=== PATIENT | male | born 1970 | race Caucasian/White ===

== ENCOUNTER 2018-09-28 10:04 | Emergency (ER) | payer OTHER ==
[2018-09-28 10:13] VITALS: BP 158/93; PULSE 71; TEMP 97.9; BMI 24.7
--- NOTE | 2018-09-28 11:17 | PDOC ---
History of Present Illness - General Chief Complaint: Wound Stated Complaint: WOUND Time Seen by Provider: 09/28/18 10:57 - History of Present Illness Initial Comments: 09/28/18 11:10 48-year-old male without comorbidities presents for evaluation of left middle finger irritation 3 weeks. No systemic symptoms. Past History - Past Medical History Allergies/Adverse Reactions: Allergies Allergy/AdvReac Type Severity Reaction Status Date / Time No Known Allergies Allergy Verified 08/18/14 14:27 Home Medications: Ambulatory Orders Famotidine [Pepcid -] 40 mg PO DAILY #7 tablet NS 08/18/14 Hydrocortisone [Preparation H] 26 gm TP DAILY #30 cream..g. 08/18/14 Cephalexin [Keflex] 500 mg PO QID #40 capsule 09/28/18 COPD: No Disorders: No Liver Disease: No - Surgical History Cardiac Surgery: No Lung Surgery: No - Immunization History Immunization Up to Date: No - Suicide/Smoking/Psychosocial Hx Smoking Status: No Smoking History: Never smoked Have you smoked in the past 12 months: No Number of Cigarettes Smoked Daily: 0 Information on smoking cessation initiated: No Hx Alcohol Use: No Drug/Substance Use Hx: No Substance Use Type: Alcohol Review of Systems - Review of Systems Constitutional: No: Fever Integumentary: Yes: See HPI *Physical Exam - Vital Signs Last Vital Signs Temp Pulse Resp BP Pulse Ox 97.9 F 71 18 158/93 99 09/28/18 10:10 09/28/18 10:10 09/28/18 10:10 09/28/18 10:10 09/28/18 10:10 - Physical Exam Comments: 09/28/18 11:17 Left middle finger skin color and temperature are normal. There is a small eschar on the ulnar aspect of the nail fold without surrounding erythema fluctuance or tenderness. There is mild sensitivity at the tip. FDS and FDP work independently. There is no pain with passive stretch no indication of tenosynovitis. No edema. Neurovascular intact without gross sensorimotor deficits. Moderate Sedation - Procedure Monitoring Vital Signs: Procedure Monitoring Vital Signs Temperature 97.9 F 09/28/18 10:10 Pulse Rate 71 09/28/18 10:10 Respiratory Rate 18 09/28/18 10:10 Blood Pressure 158/93 09/28/18 10:10 O2 Sat by Pulse Oximetry (%) 99 09/28/18 10:10 Medical Decision Making - Medical Decision Making 09/28/18 11:18 This is an unkept 48-year-old male. I will treat him prophylactically with Keflex And follow-up with hand surgery. No incision and drainage needs to be done today. *DC/Admit/Observation/Transfer Diagnosis at time of Disposition: Paronychia of finger of left hand - Discharge Dispostion Disposition: HOME Condition at time of disposition: Stable Decision to Admit order: No - Prescriptions Prescriptions: Cephalexin [Keflex] 500 mg PO QID #40 capsule - Referrals Referrals: Joel Guadarrama MD [Staff Physician] - - Patient Instructions Printed Discharge Instructions: [facility], DI for Paronychia Additional Instructions: [facility] follow-up with hand surgery in 1-2 days for further evaluation and treatment options. Return to the emergency room should symptoms worsen or go unresolved. Please take the antibiotics as directed warm soapy tap water soaks with your finger 2-3 times a day for 5 minutes at a time. - Post Discharge Activity
== END 2018-09-28 11:31 | disposition home or self-care (01) ==
LOC: JERFT 10:04
DX: L03.012 Cellulitis of left finger (principal)
CPT/HCPCS: 99281-25

== ENCOUNTER 2022-08-24 19:38 | Observation (INO) | payer OTHER ==
[2022-08-24 19:45] VITALS: BMI 28.2
[2022-08-24] MEDS ORDERED: diazePAM 5 MG TABLET PO ONE (21:24)
[2022-08-24] MEDS ORDERED: SODIUM CHLORIDE 1,000 ML IV STA (21:25)
[2022-08-24] MEDS ORDERED: FOLIC ACID 1 MG TABLET (FP) PO ONE (22:01)
[2022-08-24] MEDS ORDERED: THIAMINE HCL 200 MG/2 ML VIAL IVPB ONE (22:01)
[2022-08-24] MEDS ORDERED: THIAMINE HCL 200 MG/2 ML VIAL ONE (22:26)
[2022-08-24] MEDS ORDERED: FOLIC ACID 1 MG TABLET (FP) ONE (22:28)
[2022-08-24] MEDS ORDERED: diazePAM 5 MG TABLET ONE (22:28)
[2022-08-24] MEDS ORDERED: diazePAM CARPU-JECT 10 MG/2 ML DISP.SYRIN IVPUSH ONE (23:03)
[2022-08-24 23:07] LABS: BASO % 0.9 % (0-2.0); EOS % 2.8 % (0-4.5); HEMATOCRIT 42.9 % (35.4-49); MCH 27.7 pg (25.7-33.7); MCHC 32.7 g/dl (32.0-35.9); MEAN CELL VOLUME 84.7 fl (80-96); MEAN PLT VOLUME 8.8 fl (7.5-11.1); NEUT % 70.3 % (42.8-82.8); PLATELET COUNT 189 10^3/uL (134-434); RBC 5.06 M/mm3 (4.00-5.60); RDW 17.9 % (11.9-15.9); VENOUS BASE EXCESS -1.6 mmol/L (-2-2); VENOUS O2 SATURATION 85.2 % (70-80); VENOUS PCO2 44.7 mmHg (38-52); VENOUS PH 7.351 (7.310-7.410); WHITE BLOOD COUNT 5.7 K/mm3 (4.0-10.0)
[2022-08-24 23:25] LABS: INR 1.08 (0.83-1.09); PROTHROMBIN TIME (PATIENT) 12.4 SEC (9.7-13.0)
[2022-08-24 23:28] LABS: ACTIVATED PTT 29.6 SECONDS (25.2-36.5)
[2022-08-24 23:36] LABS: ALBUMIN 3.8 g/dl (3.4-5.0); BLOOD UREA NITROGEN 4.8 mg/dL (7-18); CALCIUM 8.8 mg/dL (8.5-10.1)
[2022-08-24 23:39] LABS: CREATININE 0.7 mg/dL (0.55-1.3)
[2022-08-24 23:41] LABS: BILIRUBIN,TOTAL 0.4 mg/dL (0.2-1); TOT PROT 8.2 g/dl (6.4-8.2)
[2022-08-24 23:42] LABS: LACTIC ACID 3.3 mmol/L (0.4-2.0)
[2022-08-25] MEDS ORDERED: diazePAM CARPU-JECT 10 MG/2 ML DISP.SYRIN ONE (00:06)
[2022-08-25] MEDS ORDERED: diazePAM 5 MG TABLET PO PRN (03:03)
[2022-08-25] MEDS: diazePAM 5 MG TABLET PO SCH ×2 (06:07→14:15)
[2022-08-25] MEDS ORDERED: diazePAM 5 MG TABLET ONE ×2 (06:10→14:00)
[2022-08-25 07:48] LABS: LACTIC ACID 2.3 mmol/L (0.4-2.0)
[2022-08-25 08:55] LABS: BASO % 0.8 % (0-2.0); EOS % 4.1 % (0-4.5); HEMATOCRIT 39.6 % (35.4-49); LYMPH % 20.2 % (8-40); MCH 27.7 pg (25.7-33.7); MCHC 32.9 g/dl (32.0-35.9); MEAN CELL VOLUME 84.4 fl (80-96); MEAN PLT VOLUME 8.7 fl (7.5-11.1); NEUT % 68.9 % (42.8-82.8); PLATELET COUNT 168 10^3/uL (134-434); RDW 17.8 % (11.9-15.9); WHITE BLOOD COUNT 5.9 K/mm3 (4.0-10.0)
[2022-08-25 09:19] LABS: ALBUMIN 3.3 g/dl (3.4-5.0)
[2022-08-25 09:20] LABS: CALCIUM 8.4 mg/dL (8.5-10.1)
[2022-08-25 09:22] LABS: PHOSPHOROUS 3.2 mg/dL (2.5-4.9)
[2022-08-25 09:23] LABS: CREATININE 0.7 mg/dL (0.55-1.3)
[2022-08-25 09:24] LABS: BILIRUBIN,TOTAL 0.7 mg/dL (0.2-1); TOT PROT 7.3 g/dl (6.4-8.2)
[2022-08-25] MEDS ORDERED: PANTOPRAZOLE 20 MG TABLET PO SCH (10:00)
[2022-08-25] MEDS ORDERED: ENOXAPARIN NA (PORCINE) 40 MG/0.4 ML DISP.SYRIN SQ SCH (10:00)
[2022-08-25] MEDS ORDERED: THIAMINE HCL 200 MG/2 ML VIAL ONE (13:59)
[2022-08-25] MEDS ORDERED: ENOXAPARIN NA (PORCINE) 40 MG/0.4 ML DISP.SYRIN SQ ONE (14:00)
[2022-08-25] MEDS ORDERED: PANTOPRAZOLE 20 MG TABLET PO ONE (14:00)
[2022-08-25] MEDS: THIAMINE HCL 200 MG/2 ML VIAL IVPB SCH ×2 (14:15→14:16)
[2022-08-25 14:17] VITALS: RESP 18
[2022-08-25 15:55] VITALS: BP 147/85; PULSE 81; TEMP 97.8
[2022-08-26] MEDS ORDERED: diazePAM 5 MG TABLET PO SCH (06:00)
[2022-08-27] MEDS ORDERED: diazePAM 5 MG TABLET PO SCH (06:00)
[2022-08-27] MEDS ORDERED: THIAMINE HCL 200 MG/2 ML VIAL IVPB SCH (10:00)
[2022-08-28] MEDS ORDERED: diazePAM 5 MG TABLET PO ONE (06:00)
== END 2022-08-25 16:42 | disposition home or self-care (01) ==
LOC: JER 19:38 → JERBED 08-25 01:30 → UNDOADMOB 08-25 01:30 → INTOOBSV 08-25 01:30 → JERBED 08-25 02:22
PROVIDERS: ADMIT Internal Medicine; ATTEND Internal Medicine
PROC: 3E033NZ Introduction of Analgesics, Hypnotics, Sedatives into Peripheral Vein, Percutaneous Approach (ICD-10-PCS; principal; 2022-08-25)
PROC: 3E0337Z Introduction of Electrolytic and Water Balance Substance into Peripheral Vein, Percutaneous Approach (ICD-10-PCS; 2022-08-25)
PROC: 3E033GC Introduction of Other Therapeutic Substance into Peripheral Vein, Percutaneous Approach (ICD-10-PCS; 2022-08-25)
DX: F10.939 Alcohol use, unspecified with withdrawal, unspecified (principal); R10.11 Right upper quadrant pain; I45.81 Long QT syndrome; Z29.8 Encounter for other specified prophylactic measures; I10 Essential (primary) hypertension
CPT/HCPCS: 36415; 71046-TC-FY; 76705-TC; 80053; 82803; 83605; 83690; 83735; 84100; 84484; 85025; 85610; 85730; 93005; 93010; 96361; 96374; 96375; 99285-25; C9803-CS; G0378; U0003; U0005

== ENCOUNTER 2023-01-18 22:01 | Emergency (ER) | payer OTHER ==
[2023-01-18 22:09] VITALS: BP 165/102; PULSE 86; RESP 20; TEMP 98.1; BMI 25.8
== END 2023-01-19 01:31 | disposition home or self-care (01) ==
LOC: JER 22:01
DX: F10.920 Alcohol use, unspecified with intoxication, uncomplicated (principal); Y90.9 Presence of alcohol in blood, level not specified
CPT/HCPCS: 99282-25

== ENCOUNTER 2023-01-19 02:07 | Inpatient (IN) | payer OTHER ==
[2023-01-19 02:28] VITALS: BMI 25.0
[2023-01-19] MEDS ORDERED: cloNIDine HCL 0.1 MG TABLET PO ONE (02:51)
[2023-01-19] MEDS ORDERED: BENZOCAINE/MENTHOL (CHLORASEPTIC ) LOZENGE MM PRN (02:52)
[2023-01-19] MEDS ORDERED: IBUPROFEN 400 MG TABLET (FP) PO PRN (02:52)
[2023-01-19] MEDS ORDERED: MAG HYDROX/AL HYDROX/SIMETH 30 ML UNIT-DOSE CUP PO PRN (02:52)
[2023-01-19] MEDS ORDERED: NALOXONE HCL (KLOXXADO) 8 MG SPRAY NS PRN (02:52)
[2023-01-19] MEDS ORDERED: guaiFENesin 600 MG TABLET.ER (FP) PO PRN (02:52)
[2023-01-19] MEDS ORDERED: BISMUTH SUBSALICYLATE 524 MG/30 ML PO PRN (02:52)
[2023-01-19] MEDS ORDERED: NALOXONE HCL 0.4 MG/ML VIAL IM PRN (02:52)
[2023-01-19] MEDS ORDERED: IBUPROFEN 600 MG TABLET (FP) PO PRN (02:52)
[2023-01-19] MEDS ORDERED: DICYCLOMINE HCL 10 MG CAPSULE PO PRN (02:52)
[2023-01-19] MEDS ORDERED: POLYETHYLENE GLYCOL (HEALTHYLAX) 3350 17 GM PACKET PO PRN (02:52)
[2023-01-19] MEDS ORDERED: ONDANSETRON *ODT* 4 MG TABLET SL PRN (02:52)
[2023-01-19] MEDS ORDERED: ACETAMINOPHEN 325 MG TABLET (FP) PO PRN (02:52)
[2023-01-19] MEDS ORDERED: LOPERAMIDE HCL 2 MG CAPSULE PO PRN (02:52)
[2023-01-19] MEDS ORDERED: BENZONATATE 200 MG CAPSULE PO PRN (02:52)
[2023-01-19] MEDS ORDERED: MAGNESIUM HYDROX 2400MG/30ML ORAL SUSPENSION 30 ML CUP PO PRN (02:52)
[2023-01-19 09:57] LABS: HEMATOCRIT 40.9 % (35.4-49); HEMOGLOBIN 14.2 GM/dL (11.7-16.9); MCH 28.7 pg (25.7-33.7); MCHC 34.8 g/dl (32.0-35.9); MEAN CELL VOLUME 82.6 fl (80-96); MEAN PLT VOLUME 8.6 fl (7.5-11.1); PLATELET COUNT 248 10^3/uL (134-434); RBC 4.96 M/mm3 (4.00-5.60); RDW 14.5 % (11.9-15.9); WHITE BLOOD COUNT 5.9 K/mm3 (4.0-10.0)
[2023-01-19 10:00] LABS: ALBUMIN 3.6 g/dl (3.4-5.0); CALCIUM 8.2 mg/dL (8.5-10.1)
[2023-01-19 10:02] LABS: BLOOD UREA NITROGEN 5.4 mg/dL (7-18)
[2023-01-19 10:04] LABS: CREATININE 0.7 mg/dL (0.55-1.3)
[2023-01-19 10:07] LABS: BILIRUBIN,TOTAL 0.6 mg/dL (0.2-1); TOT PROT 7.7 g/dl (6.4-8.2)
[2023-01-19] MEDS: METHOCARBAMOL 500 MG TABLET PO PRN (10:17)
[2023-01-19] MEDS: hydrOXYzine PAMOATE 25 MG CAPSULE (FP) PO PRN (10:17)
[2023-01-19] MEDS: PRENATAL VITAMINS W/ FOLIC ACID TABLET (FP) PO SCH (10:17)
[2023-01-19] MEDS: amLODIPine BESYLATE 10 MG TABLET (FP) PO SCH (12:40)
[2023-01-19 15:03] VITALS: RESP 18
[2023-01-19] MEDS ORDERED: chlordiazePOXIDE HCL 25 MG CAPSULE PO PRN (15:15)
[2023-01-19] MEDS: chlordiazePOXIDE HCL 25 MG CAPSULE PO SCH ×2 (17:40→22:31)
[2023-01-19] MEDS ORDERED: THIAMINE HCL 100 MG TABLET (FP) PO SCH (22:00)
[2023-01-19] MEDS ORDERED: MELATONIN 5 MG TABLETS PO SCH (22:00)
[2023-01-20] MEDS: chlordiazePOXIDE HCL 25 MG CAPSULE PO SCH ×2 (05:24→10:20)
[2023-01-20] MEDS: hydrOXYzine PAMOATE 25 MG CAPSULE (FP) PO PRN (10:18)
[2023-01-20] MEDS: amLODIPine BESYLATE 10 MG TABLET (FP) PO SCH (10:18)
[2023-01-20] MEDS: METHOCARBAMOL 500 MG TABLET PO PRN (10:18)
[2023-01-20] MEDS: PRENATAL VITAMINS W/ FOLIC ACID TABLET (FP) PO SCH (10:18)
[2023-01-20 13:08] VITALS: BP 113/69; PULSE 91; TEMP 97.8
[2023-01-21] MEDS ORDERED: chlordiazePOXIDE HCL 25 MG CAPSULE PO SCH (05:00)
[2023-01-22] MEDS ORDERED: chlordiazePOXIDE HCL 10 MG CAPSULE PO PRN
[2023-01-22] MEDS ORDERED: chlordiazePOXIDE HCL 10 MG CAPSULE PO SCH (05:00)
[2023-01-23] MEDS ORDERED: chlordiazePOXIDE HCL 10 MG CAPSULE PO SCH (05:00)
[2023-01-24] MEDS ORDERED: chlordiazePOXIDE HCL 10 MG CAPSULE PO ONE (05:00)
== END 2023-01-20 15:51 | disposition left against medical advice (07) | DRG 770 ==
LOC: YASAS 02:07 → Y6N 03:14
PROVIDERS: ADMIT Allergy & Immunology; ATTEND Allergy & Immunology
PROC: HZ2ZZZZ Detoxification Services for Substance Abuse Treatment (ICD-10-PCS; principal; 2023-01-19)
DX: F10.230 Alcohol dependence with withdrawal, uncomplicated (principal)
CPT/HCPCS: 36415; 80053; 85027; 86780; 93005; 93010; C9803-CS; U0003; U0005

== ENCOUNTER 2023-08-19 00:34 | Inpatient (IN) | payer OTHER ==
[2023-08-19] MEDS ORDERED: SODIUM CHLORIDE 0.9% 500 ML INFUS.BAG IV ONE (01:07)
[2023-08-19] MEDS ORDERED: MAG HYDROX/AL HYDROX/SIMETH 30 ML UNIT-DOSE CUP PO ONE (01:07)
[2023-08-19] MEDS ORDERED: ONDANSETRON 4 MG/2 ML VIAL IVPUSH ONE (01:07)
[2023-08-19] MEDS ORDERED: FAMOTIDINE 20 MG/50 ML IVPB 20 MG/50 ML MG IVPB ONE ×2 (01:07→01:15)
[2023-08-19] MEDS ORDERED: ONDANSETRON 4 MG/2 ML VIAL ONE (01:15)
[2023-08-19] MEDS ORDERED: MAG HYDROX/AL HYDROX/SIMETH 30 ML UNIT-DOSE CUP ONE (01:15)
[2023-08-19 01:40] LABS: EOS % 0.2 % (0-4.5); HEMATOCRIT 44.6 % (35.4-49); HEMOGLOBIN 15.2 GM/dL (11.7-16.9); MCH 29.4 pg (25.7-33.7); MCHC 34.2 g/dl (32.0-35.9); MEAN PLT VOLUME 9.2 fl (7.5-11.1); MONO % 7.4 % (3.8-10.2); NEUT % 64.4 % (42.8-82.8); PLATELET COUNT 231 10^3/uL (134-434); RBC 5.19 M/mm3 (4.00-5.60); RDW 15.1 % (11.9-15.9); WHITE BLOOD COUNT 6.6 K/mm3 (4.0-10.0)
[2023-08-19 01:54] LABS: INR 1.24 (0.83-1.09); PROTHROMBIN TIME (PATIENT) 14.4 SEC (9.7-13.0)
[2023-08-19 01:57] LABS: ACTIVATED PTT 32.9 SECONDS (25.2-36.5)
[2023-08-19 02:02] LABS: POTASSIUM 3.5 mmol/L (3.5-5.1)
[2023-08-19 02:04] LABS: BLOOD UREA NITROGEN 8.6 mg/dL (7-18); CALCIUM 8.6 mg/dL (8.5-10.1)
[2023-08-19 02:05] LABS: ALBUMIN 3.5 g/dl (3.4-5.0)
[2023-08-19 02:08] LABS: CREATININE 1.6 mg/dL (0.55-1.3)
[2023-08-19 02:09] LABS: BILIRUBIN,TOTAL 2.1 mg/dL (0.2-1); TOT PROT 8.2 g/dl (6.4-8.2)
[2023-08-19 03:24] LABS: ARTERIAL BLD GAS O2 SATURATION 95.1 % (95-98); ARTERIAL BLOOD GAS BASE EXCESS -0.7 mmol/L (-2-2); ARTERIAL BLOOD GAS PO2 71.8 mmHg (80-100); ARTERIAL BLOOD GAS pH 7.441 (7.350-7.450)
[2023-08-19 04:22] LABS: CHLORIDE 102 mmol/L (98-107); POTASSIUM 3.5 mmol/L (3.5-5.1); SODIUM 136 mmol/L (136-145)
[2023-08-19 04:23] LABS: CALCIUM 7.5 mg/dL (8.5-10.1)
[2023-08-19 04:24] LABS: ALBUMIN 3.1 g/dl (3.4-5.0); ANION GAP 10 mmol/L (4-13); CO2 24 mmol/L (21-32); GLUCOSE,RANDOM 116 mg/dL (74-106)
[2023-08-19 04:27] LABS: CREATININE 1.5 mg/dL (0.55-1.3); SGOT/AST 245 U/L (15-37); SGPT/ALT 477 U/L (13-61)
[2023-08-19 04:29] LABS: BILIRUBIN,TOTAL 1.8 mg/dL (0.2-1); TOT PROT 7.3 g/dl (6.4-8.2)
[2023-08-19 04:30] LABS: ALK PHOS 109 U/L (45-117)
[2023-08-19] MEDS ORDERED: FOLIC ACID INJECTION - 1 MG, THIAMINE HCL 100 MG, MULTIVIT INJECTION ADULT 10 ML in SOD... IVPB ONE (04:58)
[2023-08-19 06:42] LABS: POTASSIUM 3.6 mmol/L (3.5-5.1)
[2023-08-19 06:44] LABS: ALBUMIN 2.9 g/dl (3.4-5.0); BLOOD UREA NITROGEN 6.6 mg/dL (7-18); CALCIUM 7.6 mg/dL (8.5-10.1)
[2023-08-19 06:48] LABS: CREATININE 1.5 mg/dL (0.55-1.3)
[2023-08-19 06:49] LABS: BILIRUBIN,TOTAL 1.7 mg/dL (0.2-1); TOT PROT 6.8 g/dl (6.4-8.2)
[2023-08-19] MEDS ORDERED: LORazepam 1 MG TABLET PO PRN (08:54)
[2023-08-19] MEDS ORDERED: MAG HYDROX/AL HYDROX/SIMETH 30 ML UNIT-DOSE CUP PO PRN (09:33)
[2023-08-19] MEDS ORDERED: TRIMETHOBENZAMIDE HCL 200MG/2ML INJ IM PRN (09:34)
[2023-08-19] MEDS ORDERED: THIAMINE HCL 100 MG TABLET (FP) ONE (10:24)
[2023-08-19] MEDS ORDERED: ENOXAPARIN NA (PORCINE) 40 MG/0.4 ML DISP.SYRIN SQ ONE (10:24)
[2023-08-19] MEDS ORDERED: FOLIC ACID 1 MG TABLET (FP) ONE (10:24)
[2023-08-19] MEDS: FOLIC ACID 1 MG TABLET (FP) PO SCH (10:33)
[2023-08-19] MEDS: THIAMINE HCL 100 MG TABLET (FP) PO SCH (10:33)
[2023-08-19] MEDS: ENOXAPARIN NA (PORCINE) 40 MG/0.4 ML DISP.SYRIN SQ SCH (10:33)
[2023-08-19] MEDS: SODIUM CHLORIDE 1,000 ML IV SCH (10:33)
[2023-08-19] MEDS ORDERED: LORazepam 1 MG TABLET ONE (10:37)
[2023-08-19] MEDS ORDERED: LORazepam 2 MG TABLET PO SCH (11:00)
[2023-08-19] MEDS: LORazepam 1 MG TABLET PO SCH ×2 (17:00→22:46)
[2023-08-20] MEDS: LORazepam 1 MG TABLET PO SCH ×4 (06:20→22:06)
[2023-08-20] MEDS: SODIUM CHLORIDE 1,000 ML IV SCH (06:21)
[2023-08-20 07:47] LABS: BASO % 1.2 % (0-2.0); EOS % 3.3 % (0-4.5); HEMATOCRIT 39.9 % (35.4-49); LYMPH % 29.1 % (8-40); MCH 29.2 pg (25.7-33.7); MCHC 32.6 g/dl (32.0-35.9); MEAN CELL VOLUME 89.5 fl (80-96); MEAN PLT VOLUME 9.9 fl (7.5-11.1); MONO % 7.6 % (3.8-10.2); NEUT % 58.8 % (42.8-82.8); PLATELET COUNT 155 10^3/uL (134-434); RBC 4.45 M/mm3 (4.00-5.60); RDW 14.8 % (11.9-15.9); WHITE BLOOD COUNT 4.3 K/mm3 (4.0-10.0)
[2023-08-20 07:58] LABS: BLOOD UREA NITROGEN 4.3 mg/dL (7-18); CALCIUM 7.7 mg/dL (8.5-10.1); MAGNESIUM 1.8 mg/dL (1.8-2.4)
[2023-08-20 07:59] LABS: ALBUMIN 2.8 g/dl (3.4-5.0)
[2023-08-20 08:01] LABS: PHOSPHOROUS 2.6 mg/dL (2.5-4.9)
[2023-08-20 08:02] LABS: CREATININE 1.3 mg/dL (0.55-1.3)
[2023-08-20 08:03] LABS: BILIRUBIN,TOTAL 1.8 mg/dL (0.2-1); TOT PROT 6.6 g/dl (6.4-8.2)
[2023-08-20 09:09] LABS: POTASSIUM 3.6 mmol/L (3.5-5.1)
[2023-08-20] MEDS: FAMOTIDINE 20 MG TABLET PO SCH (09:22)
[2023-08-20] MEDS: THIAMINE HCL 100 MG TABLET (FP) PO SCH (09:22)
[2023-08-20] MEDS: FOLIC ACID 1 MG TABLET (FP) PO SCH (09:22)
[2023-08-20] MEDS: ENOXAPARIN NA (PORCINE) 40 MG/0.4 ML DISP.SYRIN SQ SCH (09:23)
[2023-08-21] MEDS: LORazepam 1 MG TABLET PO SCH ×4 (05:53→22:03)
[2023-08-21 07:38] LABS: HEMATOCRIT 42.1 % (35.4-49); HEMOGLOBIN 13.9 GM/dL (11.7-16.9); MCH 29.2 pg (25.7-33.7); MCHC 32.9 g/dl (32.0-35.9); MEAN CELL VOLUME 88.8 fl (80-96); MEAN PLT VOLUME 9.6 fl (7.5-11.1); PLATELET COUNT 167 10^3/uL (134-434); RBC 4.74 M/mm3 (4.00-5.60); RDW 14.5 % (11.9-15.9); WHITE BLOOD COUNT 5.3 K/mm3 (4.0-10.0)
[2023-08-21 08:33] LABS: POTASSIUM 3.7 mmol/L (3.5-5.1)
[2023-08-21 08:35] LABS: ALBUMIN 3.1 g/dl (3.4-5.0); CALCIUM 8.7 mg/dL (8.5-10.1)
[2023-08-21 08:38] LABS: CREATININE 0.9 mg/dL (0.55-1.3)
[2023-08-21 08:40] LABS: BILIRUBIN,TOTAL 1.4 mg/dL (0.2-1); TOT PROT 7.3 g/dl (6.4-8.2)
[2023-08-21] MEDS: FAMOTIDINE 20 MG TABLET PO SCH (09:49)
[2023-08-21] MEDS: FOLIC ACID 1 MG TABLET (FP) PO SCH (09:49)
[2023-08-21] MEDS: ENOXAPARIN NA (PORCINE) 40 MG/0.4 ML DISP.SYRIN SQ SCH (09:49)
[2023-08-21] MEDS: THIAMINE HCL 100 MG TABLET (FP) PO SCH (09:49)
[2023-08-22] MEDS ORDERED: LORazepam 0.5 MG TABLET PO PRN
[2023-08-22] MEDS: LORazepam 0.5 MG TABLET PO SCH ×4 (05:59→22:03)
[2023-08-22 07:09] LABS: HEMATOCRIT 43.3 % (35.4-49); HEMOGLOBIN 14.4 GM/dL (11.7-16.9); MCH 29.8 pg (25.7-33.7); MCHC 33.3 g/dl (32.0-35.9); MEAN CELL VOLUME 89.4 fl (80-96); MEAN PLT VOLUME 10.5 fl (7.5-11.1); PLATELET COUNT 160 10^3/uL (134-434); RBC 4.84 M/mm3 (4.00-5.60); RDW 14.5 % (11.9-15.9); WHITE BLOOD COUNT 5.4 K/mm3 (4.0-10.0)
[2023-08-22 09:13] LABS: POTASSIUM 4.1 mmol/L (3.5-5.1)
[2023-08-22 09:15] LABS: BLOOD UREA NITROGEN 13.4 mg/dL (7-18)
[2023-08-22 09:16] LABS: ALBUMIN 3.1 g/dl (3.4-5.0)
[2023-08-22 09:19] LABS: CREATININE 0.8 mg/dL (0.55-1.3)
[2023-08-22 09:20] LABS: BILIRUBIN,TOTAL 0.9 mg/dL (0.2-1); TOT PROT 7.5 g/dl (6.4-8.2)
[2023-08-22] MEDS: FAMOTIDINE 20 MG TABLET PO SCH (10:10)
[2023-08-22] MEDS: FOLIC ACID 1 MG TABLET (FP) PO SCH (10:10)
[2023-08-22] MEDS: THIAMINE HCL 100 MG TABLET (FP) PO SCH (10:10)
[2023-08-22] MEDS: ENOXAPARIN NA (PORCINE) 40 MG/0.4 ML DISP.SYRIN SQ SCH (10:10)
[2023-08-22 16:15] VITALS: BMI 23.1
[2023-08-23 01:59] VITALS: TEMP 98.8
[2023-08-23] MEDS ORDERED: LORazepam 0.5 MG TABLET PO ONE (05:00)
[2023-08-23 07:03] VITALS: BP 132/80; PULSE 69; RESP 20
[2023-08-23] MEDS: ENOXAPARIN NA (PORCINE) 40 MG/0.4 ML DISP.SYRIN SQ SCH (10:19)
[2023-08-23] MEDS: FOLIC ACID 1 MG TABLET (FP) PO SCH (10:19)
[2023-08-23] MEDS: FAMOTIDINE 20 MG TABLET PO SCH (10:19)
[2023-08-23] MEDS: THIAMINE HCL 100 MG TABLET (FP) PO SCH (10:20)
[2023-08-23 13:18] LABS: POTASSIUM 3.9 mmol/L (3.5-5.1)
[2023-08-23 13:20] LABS: ALBUMIN 3.4 g/dl (3.4-5.0); BLOOD UREA NITROGEN 12.5 mg/dL (7-18)
[2023-08-23 13:23] LABS: CREATININE 0.7 mg/dL (0.55-1.3)
[2023-08-23 13:25] LABS: TOT PROT 7.8 g/dl (6.4-8.2)
== END 2023-08-23 14:00 | disposition home or self-care (01) | DRG 775 ==
LOC: JER 00:34 → JERBED 05:00 → J4W 15:10
PROVIDERS: ADMIT Internal Medicine; ATTEND Internal Medicine
PROC: HZ2ZZZZ Detoxification Services for Substance Abuse Treatment (ICD-10-PCS; principal; 2023-08-19)
DX: F10.239 Alcohol dependence with withdrawal, unspecified (principal); K70.10 Alcoholic hepatitis without ascites; K44.0 Diaphragmatic hernia with obstruction, without gangrene; K80.20 Calculus of gallbladder without cholecystitis without obstruction; R07.89 Other chest pain; N17.9 Acute kidney failure, unspecified; K76.0 Fatty (change of) liver, not elsewhere classified; T51.2X4A Toxic effect of 2-Propanol, undetermined, initial encounter; Y92.89 Other specified places as the place of occurrence of the external cause
CPT/HCPCS: 36415; 36600; 71045-TC-FY; 76705-TC; 80048; 80053; 80076; 80307; 82803; 83690; 83735; 83930; 84100; 84484; 85025; 85027; 85610; 85730; 86704; 86803; 87340; 93005; 93010; 99291; 99292

== ENCOUNTER 2024-02-22 02:10 | Emergency (ER) | payer OTHER ==
[2024-02-22 02:32] VITALS: BP 151/91; PULSE 105; RESP 18; TEMP 97.5; BMI 22.6
[2024-02-22] MEDS: FOLIC ACID INJECTION - 1 MG, THIAMINE HCL 100 MG, MULTIVIT INJECTION ADULT 10 ML in SOD... IVPB ONE ×2 (02:47→03:40)
[2024-02-22 03:20] LABS: BASO % 1.2 % (0-2.0); HEMATOCRIT 41.4 % (35.4-49); HEMOGLOBIN 14.2 GM/dL (11.7-16.9); LYMPH % 43.8 % (8-40); MCH 30.5 pg (25.7-33.7); MCHC 34.4 g/dl (32.0-35.9); MEAN CELL VOLUME 88.5 fl (80-96); MEAN PLT VOLUME 8.1 fl (7.5-11.1); MONO % 7.1 % (3.8-10.2); NEUT % 44.9 % (42.8-82.8); PLATELET COUNT 146 10^3/uL (134-434); RBC 4.67 M/mm3 (4.00-5.60); RDW 13.8 % (11.9-15.9); WHITE BLOOD COUNT 4.8 K/mm3 (4.0-10.0)
[2024-02-22 03:38] LABS: POTASSIUM 3.4 mmol/L (3.5-5.1)
[2024-02-22 03:40] LABS: ALBUMIN 3.4 g/dl (3.4-5.0); CALCIUM 8.4 mg/dL (8.5-10.1)
[2024-02-22 03:44] LABS: CREATININE 0.6 mg/dL (0.55-1.3)
[2024-02-22 03:45] LABS: BILIRUBIN,TOTAL 0.7 mg/dL (0.2-1); TOT PROT 8.3 g/dl (6.4-8.2)
[2024-02-22] MEDS ORDERED: chlordiazePOXIDE HCL 25 MG CAPSULE ONE (03:45)
[2024-02-22] MEDS: ACETAMINOPHEN 1000 MG/100 ML BAG IVPB ONE (03:45)
[2024-02-22] MEDS ORDERED: ACETAMINOPHEN INJECTION 100 ML IVPB ONE (03:45)
[2024-02-22] MEDS ORDERED: FAMOTIDINE 20 MG/50 ML IVPB 20 MG/50 ML MG IVPB ONE (03:45)
[2024-02-22] MEDS: chlordiazePOXIDE HCL 25 MG CAPSULE PO ONE (03:56)
[2024-02-22] MEDS: FAMOTIDINE 20 MG/50 ML IVPB 20 MG/50 ML MG IVPB ONE (04:02)
[2024-02-22] MEDS ORDERED: THIAMINE HCL 200 MG/2 ML VIAL ONE (04:03)
[2024-02-22] MEDS ORDERED: FOLIC ACID 1 MG TABLET (FP) ONE (04:03)
[2024-02-22] MEDS ORDERED: MULTIVITAMINS (DAILY MVI) TABLET (FP) ONE (04:04)
[2024-02-22] MEDS: MULTIVITAMINS (DAILY MVI) TABLET (FP) PO ONE (04:14)
[2024-02-22] MEDS: SODIUM CHLORIDE 1,000 ML IV STA (04:14)
[2024-02-22] MEDS: FOLIC ACID 1 MG TABLET (FP) PO ONE (04:14)
[2024-02-22] MEDS: THIAMINE HCL 200 MG/2 ML VIAL IVPB ONE (04:14)
== END 2024-02-22 06:14 | disposition home or self-care (01) ==
LOC: JER 02:10
PROC: 3E033GC Introduction of Other Therapeutic Substance into Peripheral Vein, Percutaneous Approach (ICD-10-PCS; principal; 2024-02-22)
PROC: 3E033NZ Introduction of Analgesics, Hypnotics, Sedatives into Peripheral Vein, Percutaneous Approach (ICD-10-PCS; 2024-02-22)
PROC: 3E033GC Introduction of Other Therapeutic Substance into Peripheral Vein, Percutaneous Approach (ICD-10-PCS; 2024-02-22)
DX: F10.930 Alcohol use, unspecified with withdrawal, uncomplicated (principal); F10.920 Alcohol use, unspecified with intoxication, uncomplicated; Y90.9 Presence of alcohol in blood, level not specified; R00.2 Palpitations; R07.9 Chest pain, unspecified; R10.9 Unspecified abdominal pain; R00.0 Tachycardia, unspecified; F41.9 Anxiety disorder, unspecified; R25.1 Tremor, unspecified; Z20.822 Contact with and (suspected) exposure to COVID-19
CPT/HCPCS: 0241U-QW; 36415; 71045-TC-FY; 80053; 83690; 84484; 85025; 93005; 93010; 99285-25; J0131